=== PATIENT | female | born 1960 | race Two or more races ===

== ENCOUNTER → 2016-10-02 | Day surgery (SDC) | payer BC, OTHER ==
--- NOTE | 2016-10-03 14:30 | PATH ---
Surgical Pathology Report Patient Name: [facility]. Rec. #: [id number] /Age/Gender: 1960 (Age: 56) / F Account: [id number] Location: [facility] Taken: 10/02/2016 Received: 10/02/2016 Reported: 10/03/2016 Physicians: Eli Julian M.D. Specimen(s) Received A: LEFT BREAST SPECIMEN WITH CALCIFICATIONS B: LEFT BREAST SPECIMEN WITHOUT CALCIFICATIONS Clinical History Nonpalpable lesion Mammographic findings: microcalcification, suspicious Final Diagnosis A. BREAST, LEFT, WITH CALCIFICATIONS, STEREOTACTIC BIOPSY: BENIGN BREAST TISSUE SHOWING FIBROCYSTIC CHANGES INCLUDING MICROCYST FORMATION AND APOCRINE METAPLASIA. CALCIFICATIONS ARE PRESENT IN ASSOCIATION WITH CYST CONTENTS. B. BREAST, LEFT, WITHOUT CALCIFICATIONS, STEREOTACTIC BIOPSY: BENIGN BREAST TISSUE. Electronically Signed Alyson Swanson M.D. Gross Description A. Received in formalin, labeled "left breast with calcifications," are 2 oneill-yellow, cylindrical portions of fibroadipose tissue measuring 3.5 and 4.0 cm in length and averaging 0.3 cm in diameter. The specimens are submitted in toto in one cassette. B. Received in formalin, labeled "left breast without calcifications," are 3 oneill-yellow, cylindrical portions of fibroadipose tissue ranging from 1.3-3.5 cm in length and averaging 0.3 cm in diameter. The specimens are submitted in toto in one cassette. Time to formalin fixation: 5 minutes Total formalin fixation time: Approximately 7 hours. /10/02/201610/02/2016
== END | disposition home or self-care (01) ==
LOC: FMAMMOTONE 09:19
PROVIDERS: ATTEND Surgery
PROC: 0HBU3ZX Excision of Left Breast, Percutaneous Approach, Diagnostic (ICD-10-PCS; principal; 2016-10-02)
DX: N64.89 Other specified disorders of breast (principal); R92.0 Mammographic microcalcification found on diagnostic imaging of breast
CPT/HCPCS: 19081; 87899; 88305-TC; A4648

== ENCOUNTER 2022-10-07 04:28 | Day surgery (SDC) | payer OTHER ==
[2022-10-04 08:52] VITALS: BMI 44.2
[2022-10-07] MEDS ORDERED: PROPOFOL 40 ML ONE (12:58)
[2022-10-07] MEDS ORDERED: SUCCINYLCHOLINE CHLORIDE 200 MG/10 ML SYRINGE ONE (12:59)
[2022-10-07] MEDS ORDERED: MIDAZOLAM HCL 2 MG/2 ML SINGLE DOSE VIAL ONE (12:59)
[2022-10-07] MEDS ORDERED: ceFAZolin SODIUM 1 GM VIAL ONE (13:09)
[2022-10-07] MEDS ORDERED: ceFAZolin SODIUM 1 GM VIAL IVPB ONE (13:11)
[2022-10-07] MEDS ORDERED: DEXAMETHASONE SOD PHOSPHATE 4 MG/1 ML VIAL ONE (13:13)
[2022-10-07] MEDS ORDERED: ONDANSETRON 4 MG/2 ML VIAL ONE (13:13)
[2022-10-07] MEDS ORDERED: KETOROLAC TROMETHAMINE 30 MG/1 ML VIAL ONE (13:13)
[2022-10-07] MEDS ORDERED: oxyCODONE HCL 5 MG TABLET PO PRN (13:41)
[2022-10-07] MEDS ORDERED: ONDANSETRON 4 MG/2 ML VIAL IVPUSH PRN (13:41)
[2022-10-07] MEDS ORDERED: PROMETHAZINE HCL 25 MG/1 ML VIAL IVPUSH PRN (13:41)
[2022-10-07] MEDS ORDERED: LACTATED RINGERS SOLUTION 1,000 ML IV SCH (13:45)
[2022-10-07 15:29] VITALS: RESP 18
[2022-10-07 16:00] VITALS: BP 117/68; PULSE 70; TEMP 98.2
== END 2022-10-07 16:18 | disposition home or self-care (01) ==
LOC: JASU-SURG 04:28
PROVIDERS: ATTEND Obstetrics & Gynecology
PROC: 0UDB8ZZ Extraction of Endometrium, Via Natural or Artificial Opening Endoscopic (ICD-10-PCS; principal; 2022-10-07 11:00)
DX: N95.0 Postmenopausal bleeding (principal); E66.01 Morbid (severe) obesity due to excess calories
CPT/HCPCS: 88305-TC; 94760

== ENCOUNTER 2024-03-17 10:09 | Day surgery (SDC) | payer OTHER ==
[2024-03-12 17:10] VITALS: BMI 42.0
[2024-03-17 12:46] VITALS: PULSE 76; RESP 16; TEMP 97.7
[2024-03-17 12:52] VITALS: BP 121/66
== END 2024-03-17 13:07 | disposition home or self-care (01) ==
LOC: FASU-ENDO 10:09
PROVIDERS: ATTEND Internal Medicine Gastroenterology
PROC: 0DJD8ZZ Inspection of Lower Intestinal Tract, Via Natural or Artificial Opening Endoscopic (ICD-10-PCS; principal; 2024-03-17 12:12)
DX: Z12.11 Encounter for screening for malignant neoplasm of colon (principal); K64.1 Second degree hemorrhoids; K64.8 Other hemorrhoids; K57.30 Diverticulosis of large intestine without perforation or abscess without bleeding; Z86.010 Personal history of colon polyps
CPT/HCPCS: 82962

== ENCOUNTER 2024-08-19 04:19 | Day surgery (SDC) | payer OTHER ==
[2024-08-11 13:49] VITALS: BMI 41.4
[2024-08-19] MEDS: IOHEXOL 180 MG/1 ML ML IJ ONE (08:04)
[2024-08-19] MEDS: LIDOCAINE 1% P/F 10 MG/ML VIAL INF ONE (08:04)
[2024-08-19] MEDS: DEXAMETHASONE SOD PHOSPHATE 10 MG/1 ML VIAL IVPUSH ONE (08:04)
[2024-08-19 16:41] VITALS: RESP 20
[2024-08-19 20:47] VITALS: BP 128/78; PULSE 76; TEMP 97
== END 2024-08-19 20:46 | disposition home or self-care (01) ==
LOC: JASU-SURG 04:19
PROVIDERS: ATTEND Pain Medicine Pain Medicine
PROC: 3E0R3BZ Introduction of Anesthetic Agent into Spinal Canal, Percutaneous Approach (ICD-10-PCS; 2024-08-19)
PROC: 3E0R33Z Introduction of Anti-inflammatory into Spinal Canal, Percutaneous Approach (ICD-10-PCS; principal; 2024-08-19 17:45)
DX: M48.061 Spinal stenosis, lumbar region without neurogenic claudication (principal); M54.16 Radiculopathy, lumbar region
CPT/HCPCS: J1100